=== PATIENT | male | born 1945 | race Hispanic/Latino ===

== ENCOUNTER 2017-11-17 23:01 | Emergency (ER) | payer MEDICARE ==
[2017-11-18] MEDS ORDERED: cloNIDine HCl 0.1 MG TAB ONE (00:07)
--- NOTE | 2017-11-18 01:18 | EDPHYS ---
Physician Documentation [facility] Name: Alexander Dc Jr Age: 72 yrs Sex: Male : 1945 Arrival Date: 11/17/2017 Time: 23:07 Bed 7 Private MD: ED Physician Matthew Boudreaux HPI: 11/18 06:57 This 72 yrs old Male presents to ER via Ambulatory with complaints of High tw4 Blood Pressure, Headache. 06:57 The patient has elevated blood pressure and discovered this at home. Onset: The tw4 symptoms/episode began/occurred today. Modifying factors:. Associated signs and symptoms: The patient has no apparent associated signs or symptoms. Severity of symptoms: At its worst the blood pressure was moderate. The patient has not experienced similar symptoms in the past. Historical: - Allergies: 11/17 23:30 No Known Allergies; ao - Home Meds: 23:30 losartan 100 mg oral tab 1 tab once daily [Active]; ao - PMHx: 23:30 CAD; Hypertension; Myocardial infarction; ao - Immunization history:: Adult Immunizations unknown. - Social history:: Smoking status: Patient/guardian denies using tobacco, Patient uses alcohol, on a daily basis. street drugs, cocaine. - Ebola Screening: : Patient negative for fever greater than or equal to 101.5 degrees Fahrenheit, and additional compatible Ebola Virus Disease symptoms Patient denies exposure to infectious person Patient denies travel to an Ebola-affected area in the 21 days before illness onset. ROS: 11/18 06:57 Constitutional: Negative for fever, chills, and weight loss, Cardiovascular: Negative tw4 for chest pain, palpitations, and edema, Respiratory: Negative for shortness of breath, cough, wheezing, and pleuritic chest pain, Abdomen/GI: Negative for abdominal pain, nausea, vomiting, diarrhea, and constipation, Back: Negative for injury and pain, MS/Extremity: Negative for injury and deformity. Neuro: Positive for headache, Negative for altered mental status, dizziness, gait disturbance, hearing loss, loss of consciousness, numbness. Exam: 06:57 Constitutional: This is a well developed, well nourished patient who is awake, alert, tw4 and in no acute distress. Head/Face: Normocephalic, atraumatic. Chest/axilla: Normal chest wall appearance and motion. Nontender with no deformity. No lesions are appreciated. Cardiovascular: Regular rate and rhythm with a normal S1 and S2. No gallops, murmurs, or rubs. Normal PMI, no JVD. No pulse deficits. Respiratory: Lungs have equal breath sounds bilaterally, clear to auscultation and percussion. No rales, rhonchi or wheezes noted. No increased work of breathing, no retractions or nasal flaring. Abdomen/GI: Soft, non-tender, with normal bowel sounds. No distension or tympany. No guarding or rebound. No evidence of tenderness throughout. Back: No spinal tenderness. No costovertebral tenderness. Full range of motion. MS/ Extremity: Pulses equal, no cyanosis. Neurovascular intact. Full, normal range of motion. Neuro: Awake and alert, GCS 15, oriented to person, place, time, and situation. Cranial nerves II-XII grossly intact. Motor strength 5/5 in all extremities. Sensory grossly intact. Cerebellar exam normal. Normal gait. Vital Signs: 11/17 23:27 BP 202 / 96; Pulse 61; Resp 16; Temp 98.4(O); Pulse Ox 98% on R/A; Weight 95.25 kg (M); ao Height 5 ft. 6 in. (167.64 cm) (M); Pain 0/10; 11/18 00:17 BP 189 / 90; Pulse 60; Resp 16; Pulse Ox 97% on R/A; Pain 0/10; ao 00:49 BP 175 / 96; Pulse 58; Resp 12; Pulse Ox 98% on R/A; Pain 0/10; ao 01:13 BP 153 / 81; Pulse 61; Resp 16; Pulse Ox 97% on R/A; Pain 0/10; ao 01:18 BP 153 / 81; ao 11/17 23:27 Body Mass Index 33.89 (95.25 kg, 167.64 cm) ao MDM: 11/17 23:13 Patient medically screened. tw4 11/18 06:57 Differential diagnosis: hypertensive crisis, Malignant HTN. Data reviewed: vital signs, tw4 nurses notes. Counseling: I had a detailed discussion with the patient and/or guardian regarding: the historical points, exam findings, and any diagnostic results supporting the discharge/admit diagnosis, the presence of at least one elevated blood pressure reading (>120/80) during this emergency department visit. Medication response: clonidine reduced the patient's elevated blood pressure to within acceptable limits. Response to treatment: the patient's symptoms have markedly improved after treatment, and as a result, I will discharge patient. Administered Medications: 11/17 23:52 CANCELLED (Physician Discretion): hydrALAZINE 20 mg IV at bolus once tw4 11/18 00:06 Drug: cloNIDine 0.2 mg Route: PO; ao 01:18 Follow up: BP 153 / 81; Response: No adverse reaction ao Disposition: 11/18/17 01:17 Discharged to Home. Impression: Hypertension secondary to other renal disorders. - Condition is Stable. - Discharge Instructions: Hypertension, [id number]. - Medication Reconciliation Form, Thank You Letter, Antibiotic Education, Prescription Opioid Use form. - Follow up: Private Physician; When: Upon discharge from the Emergency Department; Reason: Further diagnostic work-up, Recheck today's complaints, Continuance of care. - Problem is an ongoing problem. - Symptoms have improved. Signatures: John Guerra RN RN ao Wadley, Terrence, MD MD tw4 Corrections: (The following items were deleted from the chart) 11/17 23:52 23:35 hydrALAZINE 20 mg IV at bolus once ordered. tw4 tw4 11/18 01:30 01:17 11/18/2017 01:17 Discharged to Home. Impression: Hypertension secondary to other ao renal disorders. Condition is Stable. Forms are Medication Reconciliation Form, Thank You Letter, Antibiotic Education, Prescription Opioid Use. Follow up: Private Physician; When: Upon discharge from the Emergency Department; Reason: Further diagnostic work-up, Recheck today's complaints, Continuance of care. Problem is an ongoing problem. Symptoms have improved. tw4
--- NOTE | 2017-11-18 01:18 | ER ---
Nurse's Notes [facility] Name: Alexander Dc Jr Age: 72 yrs Sex: Male : 1945 Arrival Date: 11/17/2017 Time: 23:07 Bed 7 Private MD: Diagnosis: Hypertension secondary to other renal disorders Presentation: 11/17 23:25 Presenting complaint: Patient states: "I had a high blood pressure episode tonight. My ao Blood pressure at home was 217/115." Patient also complains of nausea. Transition of care: patient was not received from another setting of care. Onset of symptoms was November 17, 2017 at 23:00. Risk Assessment: Do you want to hurt yourself or someone else? Patient reports no desire to harm self or others. Initial Sepsis Screen: Does the patient meet any 2 criteria? No. Patient's initial sepsis screen is negative. Does the patient have a suspected source of infection? No. Patient's initial sepsis screen is negative. Care prior to arrival: None. 23:25 Method Of Arrival: Ambulatory ao 23:25 Acuity: CESAR 4 ao Triage Assessment: 23:32 Headache History: Denies prior headaches. General: Appears in no apparent distress. ao comfortable. General: Behavior is calm, cooperative, appropriate for age. Pain: Pain currently is 0 out of 10 on a pain scale. Pain began suddenly, Also complains of no other associated symptoms. Historical: - Allergies: 23:30 No Known Allergies; ao - Home Meds: 23:30 losartan 100 mg oral tab 1 tab once daily [Active]; ao - PMHx: 23:30 CAD; Hypertension; Myocardial infarction; ao - Immunization history:: Adult Immunizations unknown. - Social history:: Smoking status: Patient/guardian denies using tobacco, Patient uses alcohol, on a daily basis. street drugs, cocaine. - Ebola Screening: : Patient negative for fever greater than or equal to 101.5 degrees Fahrenheit, and additional compatible Ebola Virus Disease symptoms Patient denies exposure to infectious person Patient denies travel to an Ebola-affected area in the 21 days before illness onset. Screenin:30 Abuse screen: Denies threats or abuse. Denies injuries from another. Nutritional ao screening: No deficits noted. Tuberculosis screening: No symptoms or risk factors identified. Fall Risk None identified. Assessment: 23:30 General: Appears in no apparent distress. comfortable, Behavior is calm, cooperative, ao appropriate for age. Pain: Denies pain. Neuro: Level of Consciousness is awake, alert, obeys commands, Oriented to person, place, time, situation, Appropriate for age Moves all extremities. Full function Speech is normal, Facial symmetry appears normal. Cardiovascular: Capillary refill < 3 seconds Patient's skin is warm and dry. Respiratory: Airway is patent Respiratory effort is even, unlabored, Respiratory pattern is regular, symmetrical, Breath sounds are clear bilaterally. GI: Abdomen is flat, non-distended, Bowel sounds present X 4 quads. : No signs and/or symptoms were reported regarding the genitourinary system. EENT: No signs and/or symptoms were reported regarding the EENT system. Derm: Skin is intact, Skin is pink, warm \\T\\ dry. normal, Skin temperature is warm. Musculoskeletal: No signs and/or symptoms reported regarding the musculoskeletal system. 11/18 00:17 Reassessment: Patient appears in no apparent distress at this time. Patient and/or ao family updated on plan of care and expected duration. Pain level reassessed. Patient is alert, oriented x 3, equal unlabored respirations, skin warm/dry/pink. Vital Signs: 11/17 23:27 BP 202 / 96; Pulse 61; Resp 16; Temp 98.4(O); Pulse Ox 98% on R/A; Weight 95.25 kg (M); ao Height 5 ft. 6 in. (167.64 cm) (M); Pain 0/10; 11/18 00:17 BP 189 / 90; Pulse 60; Resp 16; Pulse Ox 97% on R/A; Pain 0/10; ao 00:49 BP 175 / 96; Pulse 58; Resp 12; Pulse Ox 98% on R/A; Pain 0/10; ao 01:13 BP 153 / 81; Pulse 61; Resp 16; Pulse Ox 97% on R/A; Pain 0/10; ao 01:18 BP 153 / 81; ao 11/17 23:27 Body Mass Index 33.89 (95.25 kg, 167.64 cm) ao ED Course: 11/17 23:07 Patient arrived in ED. es 23:13 Matthew Boudreaux MD is Attending Physician. tw4 23:17 Guerra, John, RN is Primary Nurse. ao 23:27 Triage completed. ao 23:28 Arm band placed on right wrist. Patient placed in an exam room, on a stretcher, on ao pulse oximetry, Patient notified of wait time Emesis basin given. 23:32 Patient has correct armband on for positive identification. Pulse ox on. NIBP on. ao 11/18 01:29 No provider procedures requiring assistance completed. Patient did not have IV access ao during this emergency room visit. Administered Medications: 11/17 23:52 CANCELLED (Physician Discretion): hydrALAZINE 20 mg IV at bolus once tw4 11/18 00:06 Drug: cloNIDine 0.2 mg Route: PO; ao 01:18 Follow up: BP 153 / 81; Response: No adverse reaction ao Outcome: 01:17 Discharge ordered by tw4 01:29 Discharged to home ambulatory. ao 01:29 Condition: stable 01:29 Discharge instructions given to patient, significant other, Demonstrated understanding of 01:30 Patient left the ED. ao Signatures: Guera Flores Alex RN RN Matthew Bustamante MD MD tw4
[2017-11-18 01:35] VITALS: TEMP 98.4
[2017-11-18 01:39] VITALS: BP 153/81; O2SAT 97
== END 2017-11-18 01:30 | disposition home or self-care (01) ==
LOC: ER 23:01
DX: I15.1 Hypertension secondary to other renal disorders (principal); I25.2 Old myocardial infarction; I25.10 Atherosclerotic heart disease of native coronary artery without angina pectoris
CPT/HCPCS: 99283

== ENCOUNTER 2018-03-01 02:27 | Emergency (ER) | payer MEDICARE ==
--- NOTE | 2018-03-01 03:24 | EDPHYS ---
Physician Documentation [facility] Name: Alexander Dc Jr Age: 72 yrs Sex: Male : 1945 Arrival Date: 03/01/2018 Time: 02:30 Bed 13 Private MD: ED Physician Chas Patino HPI: 03/01 03:08 This 72 yrs old Male presents to ER via Unassigned with complaints of Urinary rn Retention. 03:08 The patient presents with urinary symptoms, retention. Onset: The symptoms/episode rn began/occurred just prior to arrival. Modifying factors: The symptoms are alleviated by nothing, the symptoms are aggravated by urinating. Severity of symptoms: At their worst the symptoms were moderate, in the emergency department the symptoms are unchanged. The patient has experienced similar episodes in the past. Reports difficult to urinate, can urinate some, has happened in past, tends to happen only when drinks and has happened with cocaine in past, denies drug use this time. Denies ever having to go home with medina catheter in past, refuses medina, states usually fine with single cath, goes home and is fine.. Historical: - Allergies: 02:44 No Known Allergies; jb4 - Home Meds: 02:44 losartan 100 mg Oral tab 1 tab once daily [Active]; jb4 - PMHx: 02:44 Hypertension; Myocardial infarction; CAD; jb4 - PSHx: 02:44 Heart Surgery; jb4 - Immunization history:: Adult Immunizations unknown. - Social history:: Smoking status: Patient/guardian denies using tobacco. - Family history:: not pertinent. - Ebola Screening: : No symptoms or risks identified at this time. - Hospitalizations: : No recent hospitalization is reported. ROS: 03:08 Constitutional: Negative for fever, chills, and weight loss, Eyes: Negative for injury, rn pain, redness, and discharge, Neck: Negative for injury, pain, and swelling, Cardiovascular: Negative for chest pain, palpitations, and edema, Respiratory: Negative for shortness of breath, cough, wheezing, and pleuritic chest pain, Abdomen/GI: + urinary retention and lower abd pressure : Negative for injury, bleeding, discharge, and swelling, MS/Extremity: Negative for injury and deformity, Skin: Negative for injury, rash, and discoloration, Neuro: Negative for headache, weakness, numbness, tingling, and seizure. Exam: 03:08 Constitutional: This is a well developed, well nourished patient who is awake, alert, rn and in no acute distress. Slurred speech, smells of ETOH. Abdomen/GI: soft, non-tender Skin: Warm, dry with normal turgor. Normal color with no rashes, no lesions, and no evidence of cellulitis. MS/ Extremity: Pulses equal, no cyanosis. Neurovascular intact. Full, normal range of motion. Equal circumference. Neuro: Awake and alert, GCS 15, oriented to person, place, time, and situation. Cranial nerves II-XII grossly intact. Motor strength 5/5 in all extremities. Sensory grossly intact. Cerebellar exam normal. Normal gait. Vital Signs: 02:44 BP 210 / 118; Pulse 79; Resp 18; Temp 98.1; Pulse Ox 95% on R/A; Weight 95.25 kg (R); jb4 Height 5 ft. 6 in. (167.64 cm) (R); 03:15 BP 157 / 78; Pulse 68; Resp 16; Pulse Ox 100% on R/A; jb4 02:44 Body Mass Index 33.89 (95.25 kg, 167.64 cm) jb4 MDM: 02:35 Patient medically screened. rn 03:22 Differential diagnosis: urinary retention. Data reviewed: vital signs, nurses notes, rn and as a result, I will discharge patient. Counseling: I had a detailed discussion with the patient and/or guardian regarding: the historical points, exam findings, and any diagnostic results supporting the discharge/admit diagnosis, the need for outpatient follow up, to return to the emergency department if symptoms worsen or persist or if there are any questions or concerns that arise at home. Special discussion: I discussed with the patient/guardian in detail that at this point there is no indication for admission to the hospital. It is understood, however, that if the symptoms persist or worsen the patient needs to return immediately for re-evaluation. ED course: Pt feels much better, 900cc urine out, still does not want medina, will dc home with flomax. . 03/01 03:33 Order name: Urine Dipstick--Ancillary (enter results) em1 03/01 02:46 Order name: Straight Cath; Complete Time: 03:16 rn 03/01 03:22 Order name: Urine Dipstick-Ancillary (obtain specimen); Complete Time: 03:32 rn Administered Medications: No medications were administered Disposition: 03/01/18 03:23 Discharged to Home. Impression: Urinary Retention. - Condition is Stable. - Discharge Instructions: Acute Urinary Retention, Male. - Prescriptions for Flomax 0.4 mg Oral Capsule, Sust. Release 24 hr - take 1 capsule by ORAL route once daily 1/2 hour following the same meal each day; 30 capsule. - Medication Reconciliation Form, Thank You Letter, Antibiotic Education, Prescription Opioid Use form. - Follow up: Private Physician; When: As needed; Reason: Recheck today's complaints, Re-evaluation by your physician. - Problem is new. - Symptoms have improved. Signatures: Dispatcher [employer] EDMS Chas Patino MD MD rn Bryson, James, RN RN jb4 Corrections: (The following items were deleted from the chart) 03:36 03:23 03/01/2018 03:23 Discharged to Home. Impression: Urinary Retention. Condition is jb4 Stable. Forms are Medication Reconciliation Form, Thank You Letter, Antibiotic Education, Prescription Opioid Use. Follow up: Private Physician; When: As needed; Reason: Recheck today's complaints, Re-evaluation by your physician. Problem is new. Symptoms have improved. rn
--- NOTE | 2018-03-01 03:24 | ER ---
Nurse's Notes [facility] Name: Alexander Dc Jr Age: 72 yrs Sex: Male : 1945 Arrival Date: 03/01/2018 Time: 02:30 Bed 13 Private MD: Diagnosis: Urinary Retention Presentation: 03/01 02:44 Presenting complaint: Patient states: I have had a hard time urinating and I just want jb4 to pee. Transition of care: patient was not received from another setting of care. Onset of symptoms was March 01, 2018. Risk Assessment: Do you want to hurt yourself or someone else? Patient reports no desire to harm self or others. Initial Sepsis Screen: Does the patient meet any 2 criteria? No. Patient's initial sepsis screen is negative. Does the patient have a suspected source of infection? No. Patient's initial sepsis screen is negative. Care prior to arrival: None. 02:44 Method Of Arrival: Ambulatory jb4 02:44 Acuity: CESAR 3 jb4 Triage Assessment: 02:44 General: Appears in no apparent distress. uncomfortable, Behavior is. Pain: Complains jb4 of pain in suprapubic area. EENT: No deficits noted. Neuro: Level of Consciousness is awake, alert, obeys commands, Oriented to person, place, time, situation. Cardiovascular: Patient's skin is warm and dry. Respiratory: Airway is patent Respiratory effort is even, unlabored, Respiratory pattern is regular, symmetrical. GI: No signs and/or symptoms were reported involving the gastrointestinal system. : Reports inability to void, since late Friday evening. Derm: Skin is intact, Skin is pink, warm \T\ dry. Musculoskeletal: Circulation, motion, and sensation intact. Historical: - Allergies: 02:44 No Known Allergies; jb4 - Home Meds: 02:44 losartan 100 mg Oral tab 1 tab once daily [Active]; jb4 - PMHx: :44 Hypertension; Myocardial infarction; CAD; jb4 - PSHx: 02:44 Heart Surgery; jb4 - Immunization history:: Adult Immunizations unknown. - Social history:: Smoking status: Patient/guardian denies using tobacco. - Family history:: not pertinent. - Ebola Screening: : No symptoms or risks identified at this time. - Hospitalizations: : No recent hospitalization is reported. Screenin:44 Abuse screen: Denies threats or abuse. Nutritional screening: No deficits noted. jb4 Tuberculosis screening: No symptoms or risk factors identified. Fall Risk None identified. Assessment: 02:44 General: see triage assessment.. jb4 03:15 Reassessment: Patient appears in no apparent distress at this time. Patient and/or jb4 family updated on plan of care and expected duration. Pain level reassessed. Patient is alert, oriented x 3, equal unlabored respirations, skin warm/dry/pink. Patient states feeling better. Vital Signs: 02:44 BP 210 / 118; Pulse 79; Resp 18; Temp 98.1; Pulse Ox 95% on R/A; Weight 95.25 kg (R); jb4 Height 5 ft. 6 in. (167.64 cm) (R); 03:15 BP 157 / 78; Pulse 68; Resp 16; Pulse Ox 100% on R/A; jb4 02:44 Body Mass Index 33.89 (95.25 kg, 167.64 cm) jb4 ED Course: 02:30 Patient arrived in ED. awilda 02:35 Chas Patino MD is Attending Physician. rn 02:44 Víctor Meléndez RN is Primary Nurse. jb4 02:44 Arm band placed on left wrist. jb4 03:09 Triage completed. jb4 03:15 Patient has correct armband on for positive identification. Bed in low position. Call jb4 light in reach. Side rails up X 1. Pulse ox on. NIBP on. 03:15 No provider procedures requiring assistance completed. Patient did not have IV access jb4 during this emergency room visit. Administered Medications: No medications were administered Outcome: 03:23 Discharge ordered by . rn 03:36 Discharged to home ambulatory. jb4 03:36 Condition: stable 03:36 Discharge instructions given to patient, Instructed on discharge instructions, follow up and referral plans. medication usage, Demonstrated understanding of instructions, follow-up care, medications, Prescriptions given X 1. 03:36 Patient left the ED. jb4 Signatures: Guera Flores Roman, MD MD rn Víctor Meléndez RN RN jb4
[2018-03-01 03:41] VITALS: TEMP 98.1
[2018-03-01 03:42] VITALS: BP 157/78; O2SAT 100
[2018-03-01 05:46] LABS: Urine Blood 2+ (NEG); Urine Glucose NEGATIVE (NEG); Urine Protein NEGATIVE (NEG); Urine Specific Gravity <1.005 (1.005-1.030); Urine pH 5.5 (5.0-7.0)
== END 2018-03-01 03:36 | disposition home or self-care (01) ==
LOC: ER 02:27
DX: R33.9 Retention of urine, unspecified (principal); I10 Essential (primary) hypertension; I25.10 Atherosclerotic heart disease of native coronary artery without angina pectoris; I25.2 Old myocardial infarction; Z79.899 Other long term (current) drug therapy
CPT/HCPCS: 81003; 99283

== ENCOUNTER 2018-03-01 03:52 | Emergency (ER) | payer MEDICARE ==
--- NOTE | 2018-03-01 04:51 | EDPHYS ---
Physician Documentation [facility] Name: Alexander Dc Jr Age: 72 yrs Sex: Male : 1945 Arrival Date: 03/01/2018 Time: 03:55 Bed 13 Private MD: ED Physician Chas Patino HPI: 03/01 04:12 This 72 yrs old Male presents to ER via Unassigned with complaints of Urinary rn Retention. 04:12 The patient presents with urinary symptoms, retention. Onset: The symptoms/episode rn began/occurred just prior to arrival. Modifying factors: The symptoms are alleviated by nothing, the symptoms are aggravated by urinating. The patient has experienced a previous episode. The patient has been recently seen at the [facility] Emergency Department. Just seen, refused medina, now returns because still can't pee. . Historical: - Allergies: 04:22 No Known Allergies; jb4 - Home Meds: 04:22 losartan 100 mg Oral tab 1 tab once daily [Active]; jb4 - PMHx: 04:22 CAD; Hypertension; Myocardial infarction; jb4 - PSHx: 04:22 Heart Surgery; jb4 - Immunization history:: Adult Immunizations unknown. - Social history:: Smoking status: Patient/guardian denies using tobacco, Patient uses alcohol. - Family history:: not pertinent. - Ebola Screening: : No symptoms or risks identified at this time. - Hospitalizations: : No recent hospitalization is reported. ROS: 04:12 Constitutional: Negative for fever, chills, and weight loss, Eyes: Negative for injury, rn pain, redness, and discharge, Neck: Negative for injury, pain, and swelling, Cardiovascular: Negative for chest pain, palpitations, and edema, Respiratory: Negative for shortness of breath, cough, wheezing, and pleuritic chest pain, Abdomen/GI: Negative for abdominal pain, nausea, vomiting, diarrhea, and constipation, : Negative for injury, bleeding, discharge, and swelling, MS/Extremity: Negative for injury and deformity, Skin: Negative for injury, rash, and discoloration, Neuro: Negative for headache, weakness, numbness, tingling, and seizure. Exam: 04:12 Constitutional: This is a well developed, well nourished patient who is awake, alert, rn appears uncomfortable Abdomen/GI: soft, non-tender Neuro: Awake and alert, GCS 15, oriented to person, place, time, and situation. Cranial nerves II-XII grossly intact. Motor strength 5/5 in all extremities. Sensory grossly intact. Cerebellar exam normal. Normal gait. Vital Signs: 04:22 BP 184 / 111; Pulse 84; Resp 18; Temp 97.7; Pulse Ox 96% ; Weight 95.25 kg (R); Height jb4 5 ft. 6 in. (167.64 cm) (R); Pain 10/10; 05:14 BP 142 / 87; Pulse 74; Resp 16; Pulse Ox 100% on R/A; jb4 04:22 Body Mass Index 33.89 (95.25 kg, 167.64 cm) jb4 MDM: 04:03 Patient medically screened. rn 04:50 Differential diagnosis: urinary retention. Data reviewed: vital signs, nurses notes, rn and as a result, I will discharge patient. Counseling: I had a detailed discussion with the patient and/or guardian regarding: the historical points, exam findings, and any diagnostic results supporting the discharge/admit diagnosis, the need for outpatient follow up, to return to the emergency department if symptoms worsen or persist or if there are any questions or concerns that arise at home. Special discussion: I discussed with the patient/guardian in detail that at this point there is no indication for admission to the hospital. It is understood, however, that if the symptoms persist or worsen the patient needs to return immediately for re-evaluation. Administered Medications: No medications were administered Disposition: 03/01/18 04:51 Discharged to Home. Impression: Retention of urine, unspecified. - Condition is Stable. - Discharge Instructions: Medina Catheter Care, Adult, Acute Urinary Retention, Male. - Medication Reconciliation Form, Thank You Letter, Antibiotic Education, Prescription Opioid Use form. - Follow up: Tia Marino MD; When: As needed; Reason: Recheck today's complaints, Re-evaluation by your physician. - Problem is new. - Symptoms have improved. Signatures: Chas Patino MD MD rn Bryson, James, RN RN jb4 Corrections: (The following items were deleted from the chart) 05:16 04:51 03/01/2018 04:51 Discharged to Home. Impression: Retention of urine, unspecified. jb4 Condition is Stable. Forms are Medication Reconciliation Form, Thank You Letter, Antibiotic Education, Prescription Opioid Use. Follow up: Tia Marino; When: As needed; Reason: Recheck today's complaints, Re-evaluation by your physician. Problem is new. Symptoms have improved. rn
--- NOTE | 2018-03-01 04:51 | ER ---
Nurse's Notes [facility] Name: Alexander Dc Jr Age: 72 yrs Sex: Male : 1945 Arrival Date: 03/01/2018 Time: 03:55 Bed 13 Private MD: Diagnosis: Retention of urine, unspecified Presentation: 03/01 04:15 Presenting complaint: Patient states: I still can't pee. jb4 04:15 Transition of care: patient was not received from another setting of care. Onset of jb4 symptoms was March 01, 2018. Risk Assessment: Do you want to hurt yourself or someone else? Patient reports no desire to harm self or others. Initial Sepsis Screen: Does the patient meet any 2 criteria? No. Patient's initial sepsis screen is negative. Does the patient have a suspected source of infection? No. Patient's initial sepsis screen is negative. Care prior to arrival: None. 04:15 Method Of Arrival: Ambulatory jb4 04:15 Acuity: CESAR 4 jb4 Triage Assessment: 04:22 General: Appears in no apparent distress. uncomfortable, Behavior is calm, cooperative, jb4 appropriate for age. Pain: Complains of pain in suprapubic area. EENT: No signs and/or symptoms were reported regarding the EENT system. Neuro: Level of Consciousness is awake, alert, obeys commands, Oriented to person, place, time, situation. Cardiovascular: Patient's skin is warm and dry. Respiratory: Airway is patent Respiratory effort is even, unlabored, Respiratory pattern is regular, symmetrical. GI: No signs and/or symptoms were reported involving the gastrointestinal system. : Reports inability to void. Derm: Skin is intact, Skin is pink, warm \T\ dry. Musculoskeletal: Circulation, motion, and sensation intact. Historical: - Allergies: 04:22 No Known Allergies; jb4 - Home Meds: 04:22 losartan 100 mg Oral tab 1 tab once daily [Active]; jb4 - PMHx: 04:22 CAD; Hypertension; Myocardial infarction; jb4 - PSHx: 04:22 Heart Surgery; jb4 - Immunization history:: Adult Immunizations unknown. - Social history:: Smoking status: Patient/guardian denies using tobacco, Patient uses alcohol. - Family history:: not pertinent. - Ebola Screening: : No symptoms or risks identified at this time. - Hospitalizations: : No recent hospitalization is reported. Screenin:20 Abuse screen: Denies threats or abuse. Nutritional screening: No deficits noted. jb4 Tuberculosis screening: No symptoms or risk factors identified. Fall Risk None identified. Assessment: 04:20 General: see triage assessment.. jb4 05:14 Reassessment: Patient appears in no apparent distress at this time. Patient and/or jb4 family updated on plan of care and expected duration. Pain level reassessed. Patient is alert, oriented x 3, equal unlabored respirations, skin warm/dry/pink. PT refused to be discharged with Elaine. Provider notified and informed pt of possible negative outcome if pt refused to be discharged with Elaine. After education pt continued to refuse discharge with Elaine catheter in place. Elaine removed. Patient states feeling better. Vital Signs: 04:22 BP 184 / 111; Pulse 84; Resp 18; Temp 97.7; Pulse Ox 96% ; Weight 95.25 kg (R); Height jb4 5 ft. 6 in. (167.64 cm) (R); Pain 10/10; 05:14 BP 142 / 87; Pulse 74; Resp 16; Pulse Ox 100% on R/A; jb4 04:22 Body Mass Index 33.89 (95.25 kg, 167.64 cm) jb4 ED Course: 03:55 Patient arrived in ED. es 04:03 Víctor Meléndez, RN is Primary Nurse. jb4 04:03 Chas Patino MD is Attending Physician. rn 04:20 Triage completed. jb4 04:20 Patient has correct armband on for positive identification. Bed in low position. Call jb4 light in reach. Side rails up X 1. Pulse ox on. NIBP on. 04:22 Arm band placed on left wrist. jb4 04:51 Tia Marino MD is Referral Physician. rn 05:14 No provider procedures requiring assistance completed. Patient did not have IV access jb4 during this emergency room visit. Administered Medications: No medications were administered Outcome: 04:51 Discharge ordered by . rn 05:14 Discharged to home ambulatory. jb4 05:14 Condition: stable 05:14 Discharge instructions given to patient, Instructed on discharge instructions, follow up and referral plans. Demonstrated understanding of instructions, follow-up care. 05:16 Patient left the ED. jb4 Signatures: Guera Flores Roman, MD MD rn Bryson, James, RN RN jb4
[2018-03-01 05:20] VITALS: TEMP 97.7
[2018-03-01 05:21] VITALS: BP 142/87; O2SAT 100
== END 2018-03-01 05:16 | disposition home or self-care (01) ==
LOC: ER 03:52
DX: R33.9 Retention of urine, unspecified (principal); I10 Essential (primary) hypertension; I25.10 Atherosclerotic heart disease of native coronary artery without angina pectoris; I25.2 Old myocardial infarction; Z79.899 Other long term (current) drug therapy
CPT/HCPCS: 99283

== ENCOUNTER 2019-09-12 01:30 | Emergency (ER) | payer MEDICARE ==
[2019-09-12 02:37] LABS: Urine Blood 2+ (NEG); Urine Glucose NEGATIVE (NEG); Urine Protein NEGATIVE (NEG); Urine Specific Gravity <1.005 (1.005-1.030); Urine pH 5.5 (5.0-7.0)
[2019-09-12 02:46] LABS: Urine RBC <5 /HPF (NONE SEEN)
[2019-09-12 02:47] LABS: Urine Bacteria 20-50 /HPF (NONE SEEN); Urine Culture Reflex Order REFLEXED
--- NOTE | 2019-09-12 02:55 | EDPHYS ---
Physician Documentation [facility] Name: Alexander Dc Jr Age: 74 yrs Sex: Male : 1945 Arrival Date: 09/12/2019 Time: 01:33 Bed 6 Private MD: ED Physician Matthew Boudreaux HPI: 09/11 02:25 This 74 yrs old Male presents to ER via Ambulatory with complaints of Unable cp To Urinate. 02:25 The patient presents with urinary symptoms, retention. cp 02:25 Onset: The symptoms/episode began/occurred 2 hour(s) ago. Associated signs and cp symptoms: Pertinent positives: abdominal pain, Pertinent negatives: constipation, diarrhea, dysuria, fever, vomiting. Severity of symptoms: in the emergency department the symptoms are unchanged, despite home interventions. The patient has experienced similar episodes in the past, multiple times, patient reports having appt with urology next week. Historical: - Allergies: 01:54 No Known Allergies; lp1 - Home Meds: 01:54 Unable to obtain [Active]; lp1 - PMHx: 01:54 CAD; Hypertension; Myocardial infarction; lp1 - PSHx: 01:54 CABG; lp1 - Immunization history:: Adult Immunizations up to date. - Social history:: Smoking status: Patient denies any tobacco usage or history of. ROS: 02:30 : Positive for difficulty urinating, Negative for flank pain, burning with urination, cp bladder incontinence, testicular pain 02:30 Constitutional: Negative for body aches, chills, fever. cp 02:30 Cardiovascular: Negative for chest pain. 02:30 Respiratory: Negative for cough, shortness of breath, wheezing. 02:30 Abdomen/GI: Positive for abdominal pain, of the suprapubic area, Negative for nausea and vomiting, diarrhea, constipation. 02:30 Neuro: Negative for altered mental status, headache, weakness. 02:30 All other systems are negative. Exam: 02:35 Constitutional: The patient appears in no acute distress, alert, awake, cp non-diaphoretic, non-toxic, well developed, well nourished. 02:35 Head/Face: Normocephalic, atraumatic. cp 02:35 Eyes: Periorbital structures: appear normal, Conjunctiva: normal, no exudate, no injection, Sclera: no appreciated abnormality, Lids and lashes: appear normal, bilaterally. 02:35 Chest/axilla: Inspection: normal. 02:35 Cardiovascular: Rate: normal, Rhythm: regular. 02:35 Respiratory: the patient does not display signs of respiratory distress, Respirations: normal, no use of accessory muscles, no retractions, labored breathing, is not present. 02:35 Abdomen/GI: Inspection: abdomen appears normal, Bowel sounds: active, all quadrants, Palpation: abdomen is soft and non-tender, in all quadrants. 02:35 Back: pain, is absent. Vital Signs: 01:55 BP 201 / 115; Pulse 74; Resp 18; Temp 98.4(TE); Pulse Ox 99% on R/A; Weight 95.25 kg lp1 (R); Pain 10/10; 02:42 BP 114 / 66; Pulse 72; Resp 18; Pulse Ox 98% on R/A; ea 03:00 BP 110 / 60; Pulse 70; Resp 18; Pulse Ox 100% ; ea MDM: 02:09 Patient medically screened. cp 02:55 Data reviewed: vital signs, nurses notes, and as a result, I will discharge patient. cp 02:55 Differential diagnosis: UTI, urinary retention, prostatitis, urethritis. Counseling: I cp had a detailed discussion with the patient and/or guardian regarding: the historical points, exam findings, and any diagnostic results supporting the discharge/admit diagnosis, the need for outpatient follow up, a urologist, to return to the emergency department if symptoms worsen or persist or if there are any questions or concerns that arise at home. Response to treatment: the patient's symptoms have markedly improved after treatment, VSS. Pain resolved after medina placed. Medina changed to walking urine bag, and as a result, I will discharge patient. 09/11 02:20 Order name: Urine Microscopic Only; Complete Time: 02:51 cp 09/11 02:34 Order name: Urine Dipstick--Ancillary (enter results); Complete Time: 02:44 ar5 09/11 02:44 Interpretation: Normal except: UBLD 2+. cp 09/11 02:20 Order name: Urine Dipstick-Ancillary (obtain specimen); Complete Time: 02:33 cp 09/11 02:33 Order name: Medina; Complete Time: 02:33 ea 09/11 02:48 Order name: Urine Culture [facility] 09/11 02:42 Order name: Leg Bag; Complete Time: 03:04 ea Administered Medications: 03:12 Drug: KeFLEX 500 mg Route: PO; ea 03:17 Follow up: Response: No adverse reaction ea Disposition: 03:00 Chart complete. cp 06:27 Co-signature as Attending Physician, Matthew Boudreaux MD I agree with the assessment and tw4 plan of care. Disposition: 09/12/19 02:55 Discharged to Home. Impression: Retention of urine, Urinary tract infection, site not specified. - Condition is Stable. - Discharge Instructions: Medina Catheter Care, Adult, Acute Urinary Retention, Male, Urinary Tract Infection, Adult. - Prescriptions for Keflex 500 mg Oral Capsule - take 1 capsule by ORAL route every 12 hours for 10 days; 20 capsule. - Medication Reconciliation Form, Thank You Letter, Antibiotic Education, Prescription Opioid Use form. - Follow up: Tia Marino MD; When: 2 - 3 days; Reason: Recheck today's complaints. - Problem is new. - Symptoms have improved. Signatures: Dispatcher [employer] [facility] Sonali Garcia RN RN lp1 Riccardo Calvillo PA PA cp Antunez, Elena, RN RN ea Wadley, Terrence, MD MD tw4 Corrections: (The following items were deleted from the chart) 03:17 02:55 09/12/2019 02:55 Discharged to Home. Impression: Retention of urine; Urinary ea tract infection, site not specified. Condition is Stable. Forms are Medication Reconciliation Form, Thank You Letter, Antibiotic Education, Prescription Opioid Use. Follow up: Tia Marino; When: 2 - 3 days; Reason: Recheck today's complaints. Problem is new. Symptoms have improved. cp 03:31 03:17 09/12/2019 02:55 Discharged to Home. Impression: Retention of urine; Urinary ea tract infection, site not specified. Condition is Stable. Discharge Instructions: Medina Catheter Care, Adult, Acute Urinary Retention, Male, Urinary Tract Infection, Adult. Prescriptions for Keflex 500 mg Oral Capsule - take 1 capsule by ORAL route every 12 hours for 10 days; 20 capsule. and Forms are Medication Reconciliation Form, Thank You Letter, Antibiotic Education, Prescription Opioid Use. Follow up: Tia Marino; When: 2 - 3 days; Reason: Recheck today's complaints. Problem is new. Symptoms have improved. ea
--- NOTE | 2019-09-12 02:55 | ER ---
Nurse's Notes [facility] Name: Alexander Dc Jr Age: 74 yrs Sex: Male : 1945 Arrival Date: 09/12/2019 Time: 01:33 Bed 6 Private MD: Diagnosis: Retention of urine;Urinary tract infection, site not specified Presentation: 09/11 01:52 Chief complaint: Patient states: Unable to urinate for the past 2 hours ago; Appears lp1 uncomfortable during triage, states pain to pelvic area. Coronavirus screen: Proceed with normal triage. Ebola Screen: No symptoms or risks identified at this time. Risk Assessment: Do you want to hurt yourself or someone else? Patient reports no desire to harm self or others. Onset of symptoms was September 12, 2019. 01:52 Method Of Arrival: Ambulatory lp1 01:52 Acuity: CESAR 3 lp1 01:58 Initial Sepsis Screen: Does the patient meet any 2 criteria? No. Patient's initial lp1 sepsis screen is negative. Does the patient have a suspected source of infection? No. Patient's initial sepsis screen is negative. Historical: - Allergies: 01:54 No Known Allergies; lp1 - Home Meds: 01:54 Unable to obtain [Active]; lp1 - PMHx: 01:54 CAD; Hypertension; Myocardial infarction; lp1 - PSHx: 01:54 CABG; lp1 - Immunization history:: Adult Immunizations up to date. - Social history:: Smoking status: Patient denies any tobacco usage or history of. Screenin:54 Abuse screen: Denies threats or abuse. Denies injuries from another. Nutritional lp1 screening: No deficits noted. Tuberculosis screening: No symptoms or risk factors identified. Assessment: 02:16 General: Appears uncomfortable, Behavior is appropriate for age. Pain: Complains of ea pain in suprapubic area. Neuro: Level of Consciousness is awake, alert, obeys commands, Oriented to person, place, time, situation. Cardiovascular: Patient's skin is warm and dry. Respiratory: Airway is patent Respiratory effort is even, unlabored, Respiratory pattern is regular, symmetrical. : Reports inability to void. Derm: Skin is pink, warm \T\ dry. 03:04 Reassessment: Patient and/or family updated on plan of care and expected duration. Pain ea level reassessed. Patient is alert, oriented x 3, equal unlabored respirations, skin warm/dry/pink. Patient states feeling better. 03:12 Reassessment: Patient and/or family updated on plan of care and expected duration. Pain ea level reassessed. Patient is alert, oriented x 3, equal unlabored respirations, skin warm/dry/pink. Discharge instructions given to patient, verbalized the understanding of instruction. Pt left ED ambulatory tolerating well. Patient states feeling better. 03:24 Reassessment: Patient and/or family updated on plan of care and expected duration. Pain ea level reassessed. Patient is alert, oriented x 3, equal unlabored respirations, skin warm/dry/pink. Pt refused to keep Elaine in, provider notified. Pt verbalized the understanding of importance of following up with urologist. Vital Signs: 01:55 BP 201 / 115; Pulse 74; Resp 18; Temp 98.4(TE); Pulse Ox 99% on R/A; Weight 95.25 kg lp1 (R); Pain 10/10; 02:42 BP 114 / 66; Pulse 72; Resp 18; Pulse Ox 98% on R/A; ea 03:00 BP 110 / 60; Pulse 70; Resp 18; Pulse Ox 100% ; ea ED Course: 01:33 Patient arrived in ED. ds1 01:52 Arm band placed on right wrist. lp1 01:53 Triage completed. lp1 02:02 Sorin Del Castillo, RN is Primary Nurse. rr5 02:04 Riccardo Calvillo PA is PHCP. cp 02:04 Matthew Boudreaux MD is Attending Physician. cp 02:15 Elaine cath inserted, using sterile technique, 16 Fr., by de, balloon inflated, to ea gravity drainage. 02:16 Patient has correct armband on for positive identification. Bed in low position. Call ea light in reach. 02:53 Tia Marino MD is Referral Physician. cp 03:04 No provider procedures requiring assistance completed. Patient did not have IV access ea during this emergency room visit. 03:21 Primary Nurse role handed off by Sorin Del Castillo, RN barrie 03:25 Elaine cath removed intact, balloon deflated, Pt refused Elaine catheter. ea Administered Medications: 03:12 Drug: KeFLEX 500 mg Route: PO; ea 03:17 Follow up: Response: No adverse reaction ea Output: 03:03 Urine: 1000ml (Elaine); Total: 1000ml. ea Outcome: 02:55 Discharge ordered by . cp 03:13 Discharged to home ambulatory, with family. ea 03:13 Condition: stable 03:13 Discharge instructions given to patient, Instructed on discharge instructions, follow up and referral plans. medication usage, Demonstrated understanding of instructions, follow-up care, medications, Prescriptions given X 1. 03:17 Patient left the ED. ea 03:31 Patient left the ED. ea Signatures: Melissa Saucedo ds1 Sonali Garcia, RN RN lp1 Riccardo Calvillo PA PA cp Antunez, Elena, RN RN ea Sorin Del Castillo RN RN rr5 Corrections: (The following items were deleted from the chart) 01:58 01:55 Pulse 74bpm; Resp 18bpm; Pulse Ox 99% RA; Temp 98.4F Temporal; 95.25 kg Reported; lp1 Pain 10/10; lp1 03:13 03:13 BP 110 / 60; Pulse 70bpm; Resp 18bpm; Pulse Ox 100%; ea ea
[2019-09-12] MEDS ORDERED: CEPHALEXIN 250 MG CAP ONE (03:14)
[2019-09-12 03:22] VITALS: TEMP 98.4
[2019-09-12 03:25] VITALS: BP 110/60; O2SAT 100
== END 2019-09-12 03:31 | disposition home or self-care (01) ==
LOC: ER 01:30
DX: N39.0 Urinary tract infection, site not specified (principal); I10 Essential (primary) hypertension; Z95.1 Presence of aortocoronary bypass graft
CPT/HCPCS: 51702; 81003; 81015; 87086; 87088; 99284

== ENCOUNTER 2019-10-18 02:07 | Emergency (ER) | payer MEDICARE ==
--- NOTE | 2019-10-18 03:27 | ER ---
Nurse's Notes [facility] Name: Alexander Dc Jr Age: 74 yrs Sex: Male : 1945 Arrival Date: 10/18/2019 Time: 02:08 Bed 6 Private MD: Diagnosis: Urinary Retention Presentation: 10/17 02:12 Chief complaint: Patient states: I cannot pee, this started about 3 or 4 hours ago. sg This happened before when I had drank beer, I had three or four beers tonight and I think that's why I cannot pee. I have the urge but not very much is coming out. Coronavirus screen: Patient denies a cough. Patient denies shortness of breath or difficulty breathing. Patient denies measured and/or subjective temperature greater than 100.4F prior to today's visit. Patient denies travel on a cruise ship or to a country the [facility] currently lists as an affected area. Patient denies contact with known and/or suspected case of COVID-19. Proceed with normal triage. Ebola Screen: Patient negative for fever greater than or equal to 101.5 degrees Fahrenheit, and additional compatible Ebola Virus Disease symptoms Patient denies exposure to infectious person. Patient denies travel to an Ebola-affected area in the 21 days before illness onset. No symptoms or risks identified at this time. Initial Sepsis Screen: Does the patient meet any 2 criteria? No. Patient's initial sepsis screen is negative. Does the patient have a suspected source of infection? No. Patient's initial sepsis screen is negative. Risk Assessment: Do you want to hurt yourself or someone else? Patient reports no desire to harm self or others. Onset of symptoms was October 18, 2019. Care prior to arrival: None. Transition of care: patient was not received from another setting of care. 02:12 Method Of Arrival: Ambulatory sg 02:12 Acuity: CESAR 3 sg Historical: - Allergies: 02:14 No Known Allergies; sg - PMHx: 02:14 CAD; Hypertension; Myocardial infarction; sg - PSHx: 02:14 CABG; sg - Immunization history:: Adult Immunizations up to date. - Social history:: Smoking status: Patient denies any tobacco usage or history of. Screenin:07 Abuse screen: Denies threats or abuse. Denies injuries from another. Nutritional rv screening: No deficits noted. Tuberculosis screening: No symptoms or risk factors identified. Fall Risk None identified. Assessment: 02:41 General: Appears uncomfortable, Behavior is calm, cooperative. Pain: Complains of pain rv in suprapubic area. Neuro: Level of Consciousness is awake, alert, obeys commands, Oriented to person, place, time, situation. Cardiovascular: Patient's skin is warm and dry. Respiratory: Airway is patent. : Reports inability to void, since 2100 yesterday. Derm: Skin is intact. Vital Signs: 02:14 BP 184 / 90; Pulse 75; Resp 17; Temp 98.3; Pulse Ox 96% on R/A; Weight 95.25 kg; rv 03:06 BP 111 / 69; Pulse 81; Resp 17; Pulse Ox 95% on R/A; rv ED Course: 02:08 Patient arrived in ED. ag3 02:14 Triage completed. sg 02:14 Sid Delacruz RN is Primary Nurse. rv 02:14 Arm band placed on. sg 02:17 Shay Penaloza MD is Attending Physician. [facility] 02:30 Elaine cath inserted, using sterile technique, 16 Fr., by me, balloon inflated, to gravity drainage, urine specimen collected. returned clear yellow urine. Patient tolerated well. 02:42 Elaine cath inserted, using sterile technique, 16 Fr., by ED staff, balloon inflated, to rv gravity drainage, urine specimen collected. returned clear yellow urine. Patient tolerated well. 03:07 Patient has correct armband on for positive identification. Pulse ox on. NIBP on. rv 03:25 Martine Yeager MD is Referral Physician. 7 03:25 No provider procedures requiring assistance completed. IV discontinued. sg Administered Medications: No medications were administered Outcome: 03:25 Discharged to home ambulatory, with friend. sg 03:25 Condition: good 03:25 Discharge instructions given to patient, Instructed on discharge instructions, follow up and referral plans. safety practices, Demonstrated understanding of instructions, follow-up care. 03:26 Discharge ordered by . 7 03:28 Patient left the ED. sg Signatures: Weston Acuna RN RN Thelma Jones Sid Delacruz, NOMI RN Flora Cruz 3 Shay Penaloza MD MD 7
--- NOTE | 2019-10-18 03:27 | EDPHYS ---
Physician Documentation [facility] Name: Alexander Dc Jr Age: 74 yrs Sex: Male : 1945 Arrival Date: 10/18/2019 Time: 02:08 Bed 6 Private MD: ED Physician Shay Penaloza HPI: 10/17 02:37 This 74 yrs old Male presents to ER via Ambulatory with complaints of Urinary mh7 Retention. 02:37 The patient presents with urinary symptoms, retention. Onset: The symptoms/episode mh7 began/occurred today. Modifying factors: The symptoms are alleviated by nothing, the symptoms are aggravated by nothing. Associated signs and symptoms: Pertinent negatives: abdominal pain, constipation, diarrhea, dysuria, fever, hematuria, nausea, vomiting. Severity of symptoms: At their worst the symptoms were moderate, earlier today, in the emergency department the symptoms are unchanged. The patient has experienced similar episodes in the past, multiple times. Historical: - Allergies: 02:14 No Known Allergies; sg - PMHx: 02:14 CAD; Hypertension; Myocardial infarction; sg - PSHx: 02:14 CABG; sg - Immunization history:: Adult Immunizations up to date. - Social history:: Smoking status: Patient denies any tobacco usage or history of. ROS: 02:37 Constitutional: Negative for fever, chills, and weight loss, Eyes: Negative for injury, mh7 pain, redness, and discharge, ENT: Negative for injury, pain, and discharge, Neck: Negative for injury, pain, and swelling, Cardiovascular: Negative for chest pain, palpitations, and edema, Respiratory: Negative for shortness of breath, cough, wheezing, and pleuritic chest pain, Abdomen/GI: Negative for abdominal pain, nausea, vomiting, diarrhea, and constipation, Back: Negative for injury and pain, MS/Extremity: Negative for injury and deformity, Skin: Negative for injury, rash, and discoloration, Neuro: Negative for headache, weakness, numbness, tingling, and seizure, Psych: Negative for depression, anxiety, suicide ideation, homicidal ideation, and hallucinations, Allergy/Immunology: Negative for hives, rash, and allergies, Endocrine: Negative for neck swelling, polydipsia, polyuria, polyphagia, and marked weight changes, Hematologic/Lymphatic: Negative for swollen nodes, abnormal bleeding, and unusual bruising. Exam: 02:37 Constitutional: This is a well developed, well nourished patient who is awake, alert, mh7 and in no acute distress. Head/Face: Normocephalic, atraumatic. Neck: Trachea midline, no thyromegaly or masses palpated, and no cervical lymphadenopathy. Supple, full range of motion without nuchal rigidity, or vertebral point tenderness. No Meningismus. Chest/axilla: Normal chest wall appearance and motion. Nontender with no deformity. No lesions are appreciated. Cardiovascular: Regular rate and rhythm with a normal S1 and S2. No gallops, murmurs, or rubs. Normal PMI, no JVD. No pulse deficits. Respiratory: Lungs have equal breath sounds bilaterally, clear to auscultation and percussion. No rales, rhonchi or wheezes noted. No increased work of breathing, no retractions or nasal flaring. Abdomen/GI: Soft, non-tender, with normal bowel sounds. No distension or tympany. No guarding or rebound. No evidence of tenderness throughout. Back: No spinal tenderness. No costovertebral tenderness. Full range of motion. Male : Normal genitalia with no discharge or lesions. Skin: Warm, dry with normal turgor. Normal color with no rashes, no lesions, and no evidence of cellulitis. MS/ Extremity: Pulses equal, no cyanosis. Neurovascular intact. Full, normal range of motion. Neuro: Awake and alert, GCS 15, oriented to person, place, time, and situation. Cranial nerves II-XII grossly intact. Motor strength 5/5 in all extremities. Sensory grossly intact. Cerebellar exam normal. Normal gait. Psych: Awake, alert, with orientation to person, place and time. Behavior, mood, and affect are within normal limits. Vital Signs: 02:14 BP 184 / 90; Pulse 75; Resp 17; Temp 98.3; Pulse Ox 96% on R/A; Weight 95.25 kg; rv 03:06 BP 111 / 69; Pulse 81; Resp 17; Pulse Ox 95% on R/A; rv MDM: 02:28 Patient medically screened. [facility] 03:24 Differential diagnosis: UTI, urinary retention, urethritis. Data reviewed: vital signs, [facility] nurses notes, old medical records, lab test result(s), urinalysis. Data interpreted: Pulse oximetry: on room air is 95 %. Interpretation: normal. Counseling: I had a detailed discussion with the patient and/or guardian regarding: the historical points, exam findings, and any diagnostic results supporting the discharge/admit diagnosis, lab results, the need for outpatient follow up, to return to the emergency department if symptoms worsen or persist or if there are any questions or concerns that arise at home. Response to treatment: the patient's symptoms have resolved after treatment, the patient's blood pressure is in an acceptable range, mental status has returned to baseline, the patient no longer shows bradycardia, the patient is not short of breath, the patient is not tachycardic, the patient's pain is gone, the patient's temperature has normalized. 10/17 02:48 Order name: Urine Dipstick--Ancillary (enter results) mw2 10/17 02:31 Order name: Urine Dipstick-Ancillary (obtain specimen); Complete Time: 02:42 mh7 10/17 02:31 Order name: Elaine-[facility] [address]; Complete Time: 02:42 mh7 Administered Medications: No medications were administered Disposition: 10/18/19 03:26 Discharged to Home. Impression: Urinary Retention. - Condition is Stable. - Discharge Instructions: Acute Urinary Retention, Male, [id number]. - Medication Reconciliation Form, Thank You Letter, Antibiotic Education, Prescription Opioid Use form. - Follow up: Martine Yeager MD; When: 48 Hours; Reason: Worsening of condition, Recheck today's complaints. - Problem is an acute exacerbation. - Symptoms have improved. Signatures: Dispatcher [employer] EDWeston Anand RN RN sg Holmes, Maurice, MD MD mh7 Corrections: (The following items were deleted from the chart) 03:28 03:26 10/18/2019 03:26 Discharged to Home. Impression: Urinary Retention. Condition is sg Stable. Forms are Medication Reconciliation Form, Thank You Letter, Antibiotic Education, Prescription Opioid Use. Follow up: Martine Yeager; When: 48 Hours; Reason: Worsening of condition, Recheck today's complaints. Problem is an acute exacerbation. Symptoms have improved. 7
[2019-10-18 03:45] VITALS: TEMP 98.3
[2019-10-18 03:47] VITALS: BP 111/69; O2SAT 95
[2019-10-18 05:15] LABS: Urine Blood 1+ (NEG); Urine Glucose NEGATIVE (NEG); Urine Protein NEGATIVE (NEG); Urine pH 5.5 (5.0-7.0)
== END 2019-10-18 03:28 | disposition home or self-care (01) ==
LOC: ER 02:07
DX: R33.9 Retention of urine, unspecified (principal)
CPT/HCPCS: 51702; 81003; 99284

== ENCOUNTER 2020-06-11 01:06 | Emergency (ER) | payer MEDICARE ==
--- OUTSIDE RECORDS SUMMARY | 2020-06-11 01:08 | XMS REPORT | Continuity of Care Document ---
:1945 Author Organization [facility] t Address [address] [place] [address] Care Team Providers Name Role Phone Ike SULLIVAN Attending Clinician Doctor Unassigned, Name Attending Clinician Unavailable Problems This patient has no known problems. Allergies, Adverse Reactions, Alerts This patient has no known allergies or adverse reactions. Medications This patient has no known medications. Procedures This patient has no known procedures. Encounters Start End Encounter Admission Attending Care Care Encounter Source Date/Time Date/Time Type Type Clinicians Facility Department ID 2019-12-27 2019-12-27 Office ALEJA Ramires [id number] 10:39:14 11:26:52 Visit Lit LUNDBERG [id number] [facility] [id number] [place]ERT [id number] 2019-12-27 2019-12-27 Orders Doctor LIT [id number] 00:00:00 00:00:00 Only UnassignedBENJI [id number] [place] [facility] [id number] Results This patient has no known results.
[2020-06-11 01:25] LABS: Urine Blood 1+ (NEG); Urine Glucose NEGATIVE (NEG); Urine Protein NEGATIVE (NEG); Urine Specific Gravity <1.005 (1.005-1.030); Urine pH 5.5 (5.0-7.0)
[2020-06-11 03:08] LABS: Urine Bacteria <20 /HPF (NONE SEEN); Urine RBC <5 /HPF (NONE SEEN)
--- NOTE | 2020-06-11 03:56 | EDPHYS ---
Physician Documentation [facility] Name: Alexander Dc Jr Age: 75 yrs Sex: Male : 1945 Arrival Date: 06/11/2020 Time: 01:07 Bed 14 Private MD: ED Physician Chas Patnio HPI: 06/11 01:19 This 75 yrs old Male presents to ER via Unassigned with complaints of Urinary rn Problem, Unable To Urinate. 01:19 The patient presents with urinary symptoms, retention, unable to void. Onset: The rn symptoms/episode began/occurred 1 hour(s) ago. Modifying factors: The symptoms are alleviated by nothing, the symptoms are aggravated by nothing. Associated signs and symptoms: Pertinent positives: abdominal pain, Pertinent negatives: fever, hematuria. Severity of symptoms: At their worst the symptoms were moderate, in the emergency department the symptoms are unchanged. The patient has experienced similar episodes in the past. The patient has not recently seen a physician. Historical: - Allergies: : No Known Allergies; bb - Home Meds: : Unable to obtain [Active]; bb - PMHx: :21 CAD; Hypertension; Myocardial infarction; bb - PSHx: :21 CABG; bb - Immunization history:: Adult Immunizations unknown. - Social history:: Smoking status: unknown Patient uses alcohol. - Family history:: not pertinent. - Hospitalizations: : No recent hospitalization is reported. ROS: 01:19 Constitutional: Negative for fever, chills, and weight loss, Eyes: Negative for injury, rn pain, redness, and discharge, Cardiovascular: Negative for chest pain, palpitations, and edema, Respiratory: Negative for shortness of breath, cough, wheezing, and pleuritic chest pain, Abdomen/GI: + lower abd pain Back: Negative for injury and pain, : Negative for injury, bleeding, discharge, and swelling, MS/Extremity: Negative for injury and deformity, Skin: Negative for injury, rash, and discoloration, Neuro: Negative for headache, weakness, numbness, tingling, and seizure. Exam: 01:19 Constitutional: This is a well developed, well nourished patient who is awake, alert, rn appears uncomfortable Abdomen/GI: soft, mild suprapubic tenderness Male : Normal genitalia with no discharge or lesions. Neuro: Awake and alert, GCS 15, oriented to person, place, time, and situation. Cranial nerves II-XII grossly intact. Motor strength 5/5 in all extremities. Sensory grossly intact. Cerebellar exam normal. Normal gait. Vital Signs: 01:19 BP 165 / 89; Pulse 70; Resp 16 S; Temp 97.5(O); Pulse Ox 98% on R/A; Weight 95.25 kg bb (R); Height 5 ft. 6 in. (167.64 cm) (R); Pain 10/10; 01:19 Body Mass Index 33.89 (95.25 kg, 167.64 cm) bb MDM: 01:08 Patient medically screened. rn 03:01 Differential diagnosis: nonspecific abdominal pain, UTI, urinary retention. Data rn reviewed: vital signs, nurses notes, lab test result(s), and as a result, I will discharge patient. Counseling: I had a detailed discussion with the patient and/or guardian regarding: the historical points, exam findings, and any diagnostic results supporting the discharge/admit diagnosis, lab results, the need for outpatient follow up, to return to the emergency department if symptoms worsen or persist or if there are any questions or concerns that arise at home. Response to treatment: the patient's symptoms have markedly improved after treatment. 03:56 ED course: Pt insisted medina be removed, understands that retention may happen again, rn understands risk, plans to talk to his pcp.. 06/11 01:09 Order name: Urine Culture rn 06/11 01:09 Order name: Urine Microscopic Only rn 06/11 01:09 Order name: Urine Dipstick-Ancillary (obtain specimen); Complete Time: 01:21 rn 06/11 01:21 Order name: Urine Dipstick--Ancillary (enter results) mw2 06/11 01:21 Order name: Urine Dipstick-Ancillary EDLA 06/11 01:09 Order name: Medina; Complete Time: 01:21 rn Administered Medications: No medications were administered Disposition: 06/11/20 03:56 Discharged to Home. Impression: Urinary retention. - Condition is Stable. - Discharge Instructions: Acute Urinary Retention, Male. - Medication Reconciliation Form, Thank You Letter, Antibiotic Education, Prescription Opioid Use form. - Follow up: Private Physician; When: As needed; Reason: Recheck today's complaints, Re-evaluation by your physician. - Problem is an acute exacerbation. - Symptoms have improved. Signatures: Dispatcher [employer] EDCarol Vazquez RN RN Chas Hdz MD MD rn Vicente, Ronaldo, RN RN rv Corrections: (The following items were deleted from the chart) 01:18 01:09 Bladder Scanner ordered. rn rn 04:00 03:56 06/11/2020 03:56 Discharged to Home. Impression: Urinary retention. Condition is rv Stable. Forms are Medication Reconciliation Form, Thank You Letter, Antibiotic Education, Prescription Opioid Use. Follow up: Private Physician; When: As needed; Reason: Recheck today's complaints, Re-evaluation by your physician. Problem is an acute exacerbation. Symptoms have improved. rn
--- NOTE | 2020-06-11 03:56 | ER ---
Nurse's Notes [facility] Name: Alexander Dc Jr Age: 75 yrs Sex: Male : 1945 Arrival Date: 06/11/2020 Time: 01:07 Bed 14 Private MD: Diagnosis: Urinary retention Presentation: 06/11 01:19 Chief complaint: Patient states: he is unable to urinate for about an hour and he was bb drinking beer. Coronavirus screen: At this time, the client does not indicate any symptoms associated with coronavirus-19. Ebola Screen: No symptoms or risks identified at this time. Initial Sepsis Screen: Does the patient meet any 2 criteria? No. Patient's initial sepsis screen is negative. Does the patient have a suspected source of infection? No. Patient's initial sepsis screen is negative. Risk Assessment: Do you want to hurt yourself or someone else? Patient reports no desire to harm self or others. Onset of symptoms was June 11, 2020. 01:19 Method Of Arrival: Ambulatory bb 01:19 Acuity: CESAR 3 bb Historical: - Allergies: 01:21 No Known Allergies; bb - Home Meds: 01:21 Unable to obtain [Active]; bb - PMHx: 01:21 CAD; Hypertension; Myocardial infarction; bb - PSHx: 01:21 CABG; bb - Immunization history:: Adult Immunizations unknown. - Social history:: Smoking status: unknown Patient uses alcohol. - Family history:: not pertinent. - Hospitalizations: : No recent hospitalization is reported. Screenin:32 Abuse screen: Denies threats or abuse. Denies injuries from another. Nutritional rv screening: No deficits noted. Tuberculosis screening: No symptoms or risk factors identified. Fall Risk None identified. Assessment: 03:00 General: Appears uncomfortable, Behavior is calm, cooperative. rv 03:00 Pain: Denies pain. Neuro: Level of Consciousness is awake, alert, obeys commands, rv Oriented to person, place, time, situation. Cardiovascular: Patient's skin is warm and dry. Respiratory: Airway is patent. : Reports inability to void. Derm: Skin is intact. 03:59 Reassessment: patient requested to remove the medina catheter upon discharge. rv Vital Signs: 01:19 BP 165 / 89; Pulse 70; Resp 16 S; Temp 97.5(O); Pulse Ox 98% on R/A; Weight 95.25 kg bb (R); Height 5 ft. 6 in. (167.64 cm) (R); Pain 10/10; 01:19 Body Mass Index 33.89 (95.25 kg, 167.64 cm) ED Course: 01:07 Patient arrived in ED. cl3 01:08 Chas Patino MD is Attending Physician. rn 01:16 Medina cath inserted, using sterile technique, 16 Fr., by ar, balloon inflated, to bb gravity drainage, returned clear yellow urine. Patient tolerated well. 01:20 Triage completed. bb 01:21 Sid Delacruz RN is Primary Nurse. rv 01:21 Arm band placed on Patient placed in an exam room, on a stretcher, on pulse oximetry. bb 03:32 No provider procedures requiring assistance completed. Medina cath removed intact, rv balloon deflated. Patient did not have IV access during this emergency room visit. 03:33 Patient has correct armband on for positive identification. rv Administered Medications: No medications were administered Outcome: 03:56 Discharge ordered by . rn 03:59 Discharged to home ambulatory. rv 03:59 Condition: good 03:59 Discharge instructions given to patient, Instructed on discharge instructions, follow up and referral plans. Demonstrated understanding of instructions, follow-up care. 04:00 Patient left the ED. rv Signatures: Carol Wilson RN RN bb Chas Patino MD MD rn Vicente, Ronaldo, RN RN rv Lewis, Charde cl3
[2020-06-11 04:10] VITALS: BP 165/89; TEMP 97.5; O2SAT 98
== END 2020-06-11 04:00 | disposition home or self-care (01) ==
LOC: ER 01:06
DX: R33.9 Retention of urine, unspecified (principal); I10 Essential (primary) hypertension; Z95.1 Presence of aortocoronary bypass graft
CPT/HCPCS: 51702; 81003; 81015; 87086; 87088; 99284